=== PATIENT | female | born 1965 | race Caucasian/White ===

== ENCOUNTER → 2022-11-01 16:40 | Outpatient (CLI) | payer BC, SELFPAY ==
[2022-11-01 20:50] LABS: Chol/HDL Ratio 2.2 (1-3.5); Cholesterol 175 mg/dl (140-200); HDL Cholesterol 81 mg/dl (40-60); Triglycerides 60 mg/dl (30-150); VLDL Cholesterol 12 mg/dL (0-40)
[2022-11-01 20:56] LABS: Hemoglobin A1C 5.6 % (4.0-6.0)
[2022-11-01 21:01] LABS: Direct LDL Cholesterol 83.24 mg/dL (100-129)
[2022-11-01 21:22] LABS: Thyroid Stimulating Hormone 2.84 uIU/mL (0.465-4.68)
== END ==
PROVIDERS: PCP Family Medicine; Visit Provider Family Medicine
DX: R63.5 Abnormal weight gain (principal); E78.5 Hyperlipidemia, unspecified; E03.9 Hypothyroidism, unspecified; M54.50 Low back pain, unspecified; M54.32 Sciatica, left side; Z68.31 Body mass index [BMI] 31.0-31.9, adult; Z79.899 Other long term (current) drug therapy; Z76.89 Persons encountering health services in other specified circumstances
CPT/HCPCS: 80061; 83036; 84443